=== PATIENT | female | born 1980 | race Caucasian/White ===

== ENCOUNTER 2017-06-23 06:53 | Day surgery (SDC) | payer MEDICAID ==
[~2017-06-23 06:53] MED LIST: Midazolam 1 MG/ML 2 ML SDV ONE; Propofol 200 MG/20 ML SDV ONE; fentaNYL 100 MCG/2 ML SDV ONE
[2017-06-23] MEDS ORDERED: Cyanocobalamin (Vitamin B12) 1,000 MCG/ML SDV IM ONE (07:30)
[2017-06-23] MEDS ORDERED: Lactated Ringers 1,000 ML IV ONE (07:30)
[2017-06-23] MEDS ORDERED: Glycopyrrolate 0.2 MG/ML 2 ML SDV IVPUSH ONE (08:30)
[2017-06-23] MEDS ORDERED: MVI, Adult with Vitamin K 10 ML, Thiamine 200 MG, Chromium/Copper/Mang/Selen/Zn 1 ML in... IV ONE ×4 (09:00)
[2017-06-23] MEDS ORDERED: Hydrocortisone Sodium Succinate 100 MG/2 ML SDV IV PRN (10:44)
[2017-06-23] MEDS ORDERED: diphenhydrAMINE 50 MG/ML SDV IV PRN (10:45)
[2017-06-23] MEDS ORDERED: Famotidine 20 MG/2 ML SDV IV PRN (10:47)
[2017-06-23 11:52] VITALS: BP 111/65
--- NOTE | 2017-06-27 09:06 | OR ---
DATE OF PROCEDURE: 06/23/2017 PREOPERATIVE DIAGNOSIS: Epigastric pain. POSTOPERATIVE DIAGNOSIS: Epigastric pain associated with essentially normal upper GI endoscopy status post Emmy-en-Y gastric bypass (very minimal if any pouch gastritis). OPERATIVE PROCEDURES: Upper GI endoscopy with biopsies of gastric pouch for CLOtest. ANESTHESIA: IV sedation. INDICATION FOR PROCEDURE: This is a 37-year-old presenting with ongoing epigastric pain. This occurs with and without meals. She has at this point declined medical management of these symptoms. 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 The plan is to proceed with upper GI endoscopy with biopsies and/or dilation as indicated. Potential risks of the procedure including bleeding and perforation were discussed, and the patient wishes to proceed. DETAILS OF PROCEDURE: The patient was taken to the operating room and placed in a left lateral decubitus position. IV sedation was administered, after which the upper GI endoscope was passed orally through the length of the esophagus, then into the gastric pouch, and from there through the gastrojejunostomy roughly 20 cm into the Emmy limb. Overall, the examination was essentially completely normal. There was, if anything, very mild edema in the gastric pouch, but apart from that, no abnormalities were noted. There were no areas of stricturing along the course of the gastric bypass. Biopsies were then obtained from the gastric pouch and sent for CLOtest for H. pylori. Minimal bleeding from the biopsy sites was seen. The scope was then withdrawn and the procedure concluded. At this point, the plan will be to give the patient a course of Levsin 0.125 mg q.i.d. and to see if she is having some problems with esophageal spasm. In addition to that, she was noted to have a very low ferritin on recent exam, and she will be proceeding with ferritin infusion, to replete at sometime in the next week or so. She will, otherwise, follow up with Lainey Smith at [facility] in 1 month. Naeem Sharpe MD /[id number]
== END 2017-06-23 12:05 | disposition home or self-care (01) ==
LOC: JP.SDS 06:53
PROVIDERS: ATTEND Surgery
DX: K31.89 Other diseases of stomach and duodenum (principal); K21.9 Gastro-esophageal reflux disease without esophagitis; G47.33 Obstructive sleep apnea (adult) (pediatric); Z98.84 Bariatric surgery status; Z88.8 Allergy status to other drugs, medicaments and biological substances
CPT/HCPCS: 43239; 87081; J2250; J2704; J3010; J3411; J3420; J7030; J7120; Q0138; J3490

== ENCOUNTER 2019-09-20 07:24 | Day surgery (SDC) | payer MEDICAID ==
[2019-09-20] MEDS ORDERED: Propofol 200 MG/20 ML SDV ONE (07:31)
[2019-09-20] MEDS ORDERED: Midazolam 1 MG/ML 2 ML SDV ONE (07:32)
[2019-09-20] MEDS ORDERED: fentaNYL 100 MCG/2 ML SDV ONE (07:32)
[2019-09-20] MEDS ORDERED: Lactated Ringers 1,000 ML IV SCH (08:45)
[2019-09-20] MEDS ORDERED: Glycopyrrolate 0.2 MG/ML 2 ML SDV IVPUSH ONE (08:45)
[2019-09-20] MEDS ORDERED: Cyanocobalamin (Vitamin B12) 1,000 MCG/ML SDV IM ONE (09:00)
[2019-09-20] MEDS ORDERED: Pantoprazole 40 MG Vial IV ONE (09:15)
[2019-09-20] MEDS ORDERED: MVI, Adult with Vitamin K 10 ML, Thiamine 200 MG, Chromium/Copper/Mang/Selen/Zn 1 ML in... IV ONE ×4 (10:30)
[2019-09-20] MEDS ORDERED: Hydrocortisone Sodium Succinate 100 MG/2 ML SDV IVPUSH PRN (12:00)
[2019-09-20] MEDS ORDERED: Famotidine 20 MG/2 ML SDV IVPUSH PRN (12:00)
[2019-09-20] MEDS ORDERED: diphenhydrAMINE 50 MG/ML SDV IVPUSH PRN (12:00)
[2019-09-20] MEDS ORDERED: Sodium Chloride 0.9% 250 ML IV SCH (12:00)
[2019-09-20 13:01] VITALS: BP 109/67; PULSE 73
--- NOTE | 2019-09-26 15:39 | OR ---
DATE OF PROCEDURE: 09/20/2019 SURGEON: Naeem Sharpe MD PREOPERATIVE DIAGNOSIS: Persistent epigastric pain. POSTOPERATIVE DIAGNOSIS: Persistent marginal ulcer adjacent to gastrojejunostomy. OPERATIVE PROCEDURE: Upper gastrointestinal endoscopy. ANESTHESIA: IV sedation. INDICATION FOR PROCEDURE: This is a 39-year-old status post Emmy-en-Y gastric bypass presenting with ongoing epigastric pain. She was noted to have problems with ulceration in the area around the gastrojejunostomy and has been on Protonix, but has been inconsistent in taking that due to memory problems. She was found to be positive for H. pylori and is currently on a course of amoxicillin and Levaquin for treatment of that. With the persistent symptoms, the plan is to proceed with upper GI endoscopy with biopsies as indicated. Potential risks of the procedure including bleeding and perforation were discussed and the patient wishes to proceed. DETAILS OF PROCEDURE: The patient was taken to the operating room and placed in a left lateral decubitus position. IV sedation was administered, after which the upper GI endoscope was passed orally through the length of the esophagus and into the gastric pouch and through the gastrojejunostomy roughly 20 cm into the Emmy limb. Findings included normal esophagus, EG junction, and gastric pouch. Just immediately beyond the gastrojejunostomy in a typical location, marginal ulcer was present posteriorly. This measured roughly 6 mm which was covered with fibrinous exudate. There was no stricturing associated with this and the remainder of the Emmy limb was otherwise unremarkable. The patient was noted have H. pylori. No biopsies were obtained and the procedure then concluded. The plan will be to have the patient complete the H pylori treatment. Since she has problems remembering to take her Protonix and the situation was discussed with both the patient's mother and her spouse and they will set up a routine in which she will remember to take the Protonix as well as her other medications. The Protonix either will be taken upon awaking in the morning and then perhaps with evening meal as she had been on b.i.d. regimen. We will have her follow up with Lainey Smith at [facility] in 3 weeks and we will have to do an H. pylori with breath test at that time to ascertain whether or not the H. pylori has been cleared. Naeem Sharpe MD /[id number]
== END 2019-09-20 13:14 | disposition home or self-care (01) ==
LOC: JP.SDS 07:24
PROVIDERS: ATTEND Surgery
DX: K25.9 Gastric ulcer, unspecified as acute or chronic, without hemorrhage or perforation (principal); B96.81 Helicobacter pylori [H. pylori] as the cause of diseases classified elsewhere; K21.9 Gastro-esophageal reflux disease without esophagitis; Z98.84 Bariatric surgery status; Z88.8 Allergy status to other drugs, medicaments and biological substances
CPT/HCPCS: 43235; C9113; J2250; J2704; J3010; J3411; J3420; J3490; J7050; J7120; Q0138